=== PATIENT | female | born 1975 | race Two or more races ===

== ENCOUNTER 2024-01-02 11:01 | Emergency (ER) | payer MEDICAID, OTHER ==
[~2024-01-02] VITALS: Ht 165.1 cm; Wt 100.0 kg
[2024-01-02 12:06] LABS: Basophils # (auto) 0.1 10 ^3/uL (0-0.2); Basophils % (auto) 0.4 % (0.0-2.0); Eosinophils # (auto) 0.5 10 ^3/uL (0-0.8); Eosinophils % (auto) 3.8 % (0.0-7.0); Hematocrit 40.2 % (36.0-46.0); Hemoglobin 13.4 g/dL (12.2-16.2); Lymphocytes % (auto) 23.4 % (10.0-50.0); Mean Corpuscular Hemoglobin 29.5 pg (28.0-32.0); Mean Corpuscular Hgb Conc. 33.3 g/dL (32.0-36.0); Mean Corpuscular Volume 88.6 fL (80.0-100.0); Monocytes # (auto) 0.8 10 ^3/uL (0-1.3); Monocytes % (auto) 6.4 % (0.0-12.0); Neutrophils # (auto) 8.3 10 ^3/uL (1.6-8.6); Platelet Count (auto) 361 10^3/uL (140-450); Red Blood Cells 4.54 10^6/uL (4.0-5.20); Red Cell Distribution Width 14.4 % (11.8-14.3); White Blood Cell 12.7 10^3/uL (4.4-10.8)
[2024-01-02 12:08] LABS: Chloride 106 mmol/L (98-107); Potassium 3.1 mmol/L (3.5-5.1); Sodium 138 mmol/L (136-145)
[2024-01-02 12:09] LABS: Anion Gap 6 (5-15); Carbon Dioxide 26 mmol/L (20-31)
[2024-01-02 12:10] LABS: Calcium 9.5 mg/dL (8.7-10.4)
[2024-01-02 12:14] LABS: Glucose 160 mg/dL (74-106)
[2024-01-02 12:15] LABS: Blood Urea Nitrogen 6 mg/dL (9-23)
[2024-01-02 12:23] LABS: INR 1.08 (0.9-1.15); Partial Thromboplastin Time 32.1 SEC (24.5-34.5); Prothrombin Time 11.4 sec (9.3-11.8)
[2024-01-02] MEDS: POTASSIUM CHL 20 Meq TABLET PO ONE (13:03)
[2024-01-02 13:08] VITALS: BP 137/83; PULSE 60; RESP 18; TEMP 97.6; O2SAT 95
[2024-01-02] MEDS ORDERED: PROG100C23 PO (13:33)
== END 2024-01-02 13:44 | disposition home or self-care (01) ==
LOC: ER 11:12
DX: D25.9 Leiomyoma of uterus, unspecified (principal); I10 Essential (primary) hypertension; R42 Dizziness and giddiness; R51.9 Headache, unspecified; Z79.890 Hormone replacement therapy; Z88.7 Allergy status to serum and vaccine; Z90.49 Acquired absence of other specified parts of digestive tract; Z79.899 Other long term (current) drug therapy; Z79.01 Long term (current) use of anticoagulants
CPT/HCPCS: 36415; 76856; 80048; 85025; 85610; 85730; 86850; 86900; 86901

== ENCOUNTER 2024-09-19 10:41 | Inpatient (IN) | payer MEDICAID ==
[~2024-09-19] VITALS: Ht 165.1 cm; Wt 105.0 kg
[~2024-09-19 10:41] MED LIST: PROG100C23 PO
--- NOTE | 2024-09-19 11:21 | ED.PDOC ---
GI ASSESSMENT HPI Comments This is a 48 year old female presenting to the ED with chief complaint of abdominal pain. Patient reports that she has been experiencing RLQ abdominal pain for the past 6 days. Patient relays that she had her hysterectomy recently performed in August at [facility]. Patient denies any nausea, vomiting, diarrhea, dysuria, hematuria, vaginal bleeding, or melena. Chief Complaint: Abdominal Pain Time Seen by MD: 11:20 Primary Care Provider: JIMENEZ Reviewed Notes: Nurses Notes, Medications, Allergies Allergies: Coded Allergies: Tetanus Toxoids (Verified Allergy, Unknown, 01/02/24) Home Meds Active Scripts Progesterone Micronized (PROGESTERONE) 100 Mg Cap, 10 MG PO DAILY for 10 Days, #10 CAP Prov:ERASMO SPEAR MD 01/02/24 Information Source: Patient Mode of Arrival: Ambulatory Timing: Days Duration: Since onset Prehospital treatment: None Quality: Aching Vomitus: None Stool: Normal Severity: Moderate Recent: None Recent Hx of: None Pain Location: RLQ Modifying Factors: Nothing Associated sign and symptoms: Abdominal Pain Past Medical History PAST MEDICAL HISTORY: High Lipids, HTN Surgical History: Cholecystectomy, , Hysterectomy LABORER SAWMILL History: Denies all LABORER SAWMILL Hx Family History Family History: Reviewed,noncontributory to illness, Family hx of HTN Social History Smoker: Non-Smoker Alcohol: Occasionally Drugs: Denies Drug Use Lives In: Home Constitutional: denies: chills, diaphoresis, fatigue, fever, malaise, sweats, weakness, others EENTM: denies: blurred vision, double vision, ear bleeding, ear discharge, ear drainage, ear pain, ear ringing, eye pain, eye redness, hearing loss, mouth pain, mouth swelling, nasal discharge, nose bleeding, nose congestion, nose pain, photophobia, tearing, throat pain, throat swelling, voice changes, others Respiratory: denies: cough, hemoptysis, orthopnea, SOB at rest, shortness of breath, SOB with excertion, stridor, wheezing, others Cardiovascular: denies: chest pain, dizzy spells, diaphoresis, Dyspnea on exertion, edema, irregular heart beat, left arm pain, lightheadedness, palpitations, PND, syncope, others Gastrointestinal: reports: abdominal pain; denies: abdomen distended, blood streaked bowels, constipated, diarrhea, dysphagia, difficulty swallowing, hematemesis, melena, nausea, poor appetite, poor fluid intake, rectal bleeding, rectal pain, vomiting, others Genitourinary: denies: abnormal vagina bleeding, burning, dyspareunia, dysuria, flank pain, frequency, hematuria, incontinence, pain, , vagina discharge, urgency, others Neurological: denies: dizziness, fainting, headache, left sided numbness, left sided weakness, numbness, paresthesia, pre-existing deficit, right sided numbness, right sided weakness, seizure, speech problems, tingling, tremors, weakness, others Musculoskeletal: denies: back pain, gout, joint pain, joint swelling, muscle pain, muscle stiffness, neck pain, others Integumetry: denies: bruises, change in color, change in hair/nails, dryness, laceration, lesions, lumps, rash, wounds, others Allergic/Immunocompromised: denies: Difficulty Healing, Frequent Infections, Hives, Itching, others Hematologic/Lymphatic: denies: anemia, blood clots, easy bleeding, easy bruising, swollen glands, others Endocrine: denies: excessive hunger, excessive sweating, excessive thirst, excessive urination, flushing, intolerance to cold, intolerance to heat, unexplained weight gain, unexplained weight loss, others Psychiatric: denies: anxiety, bipolar disorder, depression, hopeless, panic disorder, schizophrenia, sleepless, suicidal, others All Other Systems: Reviewed and Negative Physical Exam General Appearance: Moderate Distress HEENT: Normal ENT Inspection, Pharynx Normal, TMs Normal Neck: Full Range of Motion, Non-Tender, Normal, Normal Inspection Respiratory: Chest Non-Tender, Lungs Clear, No Accessory Muscle Use, No Respiratory Distress, Normal Breath Sounds Cardiovascular: No Edema, No JVD, No Murmur, No Gallop, Normal Peripheral P ulses, Regular Rate/Rhythm Breast Exam: Deferred Gastrointestinal: No Organomegaly, No Pulsatile Mass, Normal Bowel Sounds, RLQ, Soft, Tenderness Genitalia: Deferred Pelvic: Deferred Rectal: Deferred Extremities: No calf tenderness, Normal capillary refill, Normal inspection, Normal range of motion, Non-tender, No pedal edema Musculoskeletal : Apperance: Normal Neurologic: Alert, fruit packer II-XII nml as Tested, Motor Weakness, Normal Affect, Normal Mood, No Sensory Deficits Cerebellar Function: Normal Reflexes: Normal Skin: Dry, Normal Color, Warm Lymphatic: No Adenopathy Was a procedure done? Was a procedure done?: No GI differential Dx Differential Diagnosis: Appendicitis, Gastritis/PUD, Gastroenteritis, Inflammatory BD, Ischemic Bowel, Pancreatitis X-Ray, Labs, Meds, VS Vital Signs Date Time Temp Pulse Resp B/P (MAP) Pulse Ox O2 Delivery O2 Flow Rate FiO2 09/19/24 10:48 98.6 110 18 126/96 (106) 96 98.6 Lab Test 09/19/24 11:33 09/19/24 11:13 Range/Units White Blood Count 12.2 H 4.4-10.8 10^3/uL Red Blood Count 4.61 4.0-5.20 10^6/uL Hemoglobin 12.5 12.2-16.2 g/dL Hematocrit 38.0 36.0-46.0 % Mean Corpuscular Volume 82.4 80.0-100.0 fL Mean Corpuscular Hemoglobin 27.2 L 28.0-32.0 pg Mean Corpuscular Hemoglobin Concent 33.0 32.0-36.0 g/dL Red Cell Distribution Width 16.6 H 11.8-14.3 % Platelet Count 370 140-450 10^3/uL Mean Platelet Volume 8.1 6.9-10.8 fL Neutrophils (%) (Auto) 58.8 37.0-80.0 % Lymphocytes (%) (Auto) 25.1 10.0-50.0 % Monocytes (%) (Auto) 8.4 0.0-12.0 % Eosinophils (%) (Auto) 6.4 0.0-7.0 % Basophils (%) (Auto) 1.3 0.0-2.0 % Neutrophils # (Auto) 7.2 1.6-8.6 10 ^3/uL Lymphocytes # (Auto) 3.1 0.4-5.4 10 ^3/uL Monocytes # (Auto) 1.0 0-1.3 10 ^3/uL Eosinophils # (Auto) 0.8 0-0.8 10 ^3/uL Basophils # (Auto) 0.2 0-0.2 10 ^3/uL Nucleated Red Blood Cells 0.0 % Sodium Level 138 136-145 mmol/L Potassium Level 3.7 3.5-5.1 mmol/L Chloride Level 102 98-107 mmol/L Carbon Dioxide Level 28 20-31 mmol/L Anion Gap 8 5-15 Blood Urea Nitrogen 8 L 9-23 mg/dL Creatinine 0.59 0.550-1.02 mg/dL Glomerular Filtration Rate Calc 110 >90 mL/min BUN/Creatinine Ratio 13.6 10.0-20.0 Serum Glucose 139 H 74-106 mg/dL Calcium Level 9.3 8.7-10.4 mg/dL Total Bilirubin 0.4 0.2-1.0 mg/dL Aspartate Amino Transferase (AST) 20 13-40 U/L Alanine Aminotransferase (ALT) 9 7-40 U/L Alkaline Phosphatase 80 46-116 U/L Total Protein 7.5 5.7-8.2 g/dL Albumin 4.5 3.2-4.8 g/dL Lipase 36 12-53 U/L Urine Color Light-yellow Yellow Urine Clarity Clear Clear Urine pH 7.0 5.0-9.0 Urine Specific [place] 1.019 1.001-1.035 Urine Protein Negative Negative Urine Ketones Negative Negative Urine Blood Negative Negative /uL Urine Nitrite Negative Negative Urine Bilirubin Negative Negative Urine Urobilinogen Normal Negative mg/dL Urine Leukocyte Esterase Negative Negative /uL Urine RBC 2 0 - 4 /hpf Urine Microscopic WBC < 1 0-5 /HPF Urine Squamous Epithelial Cells Few <5 /hpf Urine Bacteria Few H None Seen /hpf Urine Glucose Normal Normal mg/dL CT Abd/Pel indicates: Limited evaluation without intravenous contrast. Post surgical changes in the anterior pelvic wall with a possible postoperative fluid collection. There could be bowel running through this collection. Recommend further evaluation with CT of the pelvis with contrast. Could also be further evaluated with ultrasound. Small amount of pelvic ascites. The urine test is negative for any infection The CBC shows an elevated white blood cell count of 12.2 The patient is having persistent abdominal pain The patient is being admitted with a diagnosis of intractable abdominal pain The patient is given morphine and Zofran for the pain Images Reviewed?: Images reviewed and evaluated by me Time of 1ST Reevaluation: 13:12 Reevaluation 1ST: Unchanged Patient Education/Counseling: Diagnosis, Treatment Family Education/Counseling: No Family Present Additional Information Reviewed patient's previous visit(s): 01/02/24 for abnormal uterine bleeding The following tests were ordered, and results were reviewed by me: CBC, CMP, UA, Lipase, CT Abd/Pel Additional information was gathered from interviewing the following independent historian: None I reviewed and agreed with the following test results read by other provider: CT Abd/Pel I discussed treatments and results with medical personnel and: Patient Comprehensive systems review obtained and negative except for what is stated in the HPI. SEPSIS Sepsis Screen Date sepsis recognized/suspect: Sep 19, 2024 Time Sepsis recognized/suspect: 1048 Recent Procedure: No On Antibiotic Therapy: No Respiratory Rate >20: No Heart Rate >90: Yes (110) Temp<36 C (96.8 F) or >38.3 C: No SBP <90 or MAP <65 mmHG: No New Acute Mental Status Change: No Is the patient on CPAP, BIPAP,: No Physician Orders Ct Ab Pel Wo Con-No Oral Or Iv (09/19/24 11:13) Heplock Iv (09/19/24 11:13) Vital Signs Date Time Temp Pulse Resp B/P (MAP) Pulse Ox O2 Delivery O2 Flow Rate FiO2 09/19/24 10:48 98.6 110 18 126/96 (106) 96 98.6 Laboratory Tests Test 09/19/24 11:33 White Blood Count 12.2 10^3/uL (4.4-10.8) H Departure 1 Departure Time of Disposition: 13:12 Impression: Primary Impression: Intractable abdominal pain Additional Impression: Abdominal pain of unknown etiology Disposition: ADMITTED INPATIENT Admit to: Med Surg Condition: Fair Critical Care Note Critical Care Time?: No Stability Stability form required: Yes Unstable for transfer: ED Physician Assesment (Clinical assesment) Heart Score Heart Score: Heart Score Response (Comments) Value History N/A 0 EKG N/A 0 Age N/A 0 Risk Factors N/A 0 Troponin N/A 0 Total 0 I personally scribed for ERASMO SPEAR MD ([email or web address]) on 09/19/24 at 11:21. Electronically submitted by Catracho Warren ([email or web address]). I personally scribed for ERASMO SPEAR MD ([email or web address]) on 09/19/24 at 11:58. Electronically submitted by Catracho Warren ([email or web address]). ERASMO SPEAR MD Sep 19, 2024 11:21
[2024-09-19 11:48] LABS: Hematocrit 38.0 % (36.0-46.0); Hemoglobin 12.5 g/dL (12.2-16.2); Mean Corpuscular Hemoglobin 27.2 pg (28.0-32.0); Mean Corpuscular Volume 82.4 fL (80.0-100.0); Nucleated Red Blood Cells % 0.0 %
--- NOTE | 2024-09-19 11:49 | DVH ---
Exam: CT CT AB PEL WO CON-NO ORAL OR IV History: pain Comparison Study: None Technique: Multidetector spiral CT of the abdomen and pelvis was performed from lung bases to pubic symphysis. Imaging was performed without IV contrast. Axial, coronal and sagittal multiplanar reform ats were obtained from the axial data set by the technologist. Radiation dose : Abdomen/Pelvis: CTDIvol 26 mGy, DLP 1515 mGy*cm. Findings: Evaluation of solid organs is limited due to lack of intravenous contrast use. Lung Bases: No acute or significant lung base finding. Normal heart size. No pleural or pericardial effusion. Liver: The liver is normal in size. No focal lesions. Gallbladder and biliary Tree: Gallbladder is surgically absent. Spleen: Unremarkable Pancreas: The pancreas is grossly normal in appearance. Adrenal Glands: Unremarkable Kidneys: Kidneys are grossly normal without calculi or hydronephrosis. Bladder: Grossly unremarkable for degree of distention. Bowel: The stomach is grossly normal in appearance. Small bowel and colon are normal in caliber and d istribution. Normal appendix is visualized in the right lower quadrant without findings of appendicit is. Ascites: Small amount of ascites in the pelvis. Lymphadenopathy: No mesenteric, retroperitoneal or periportal lymphadenopathy. Abdominal wall and Mesentery: Postsurgical changes in the anterior pelvic wall. Possible fluid collec tion in the anterior abdominal wall measuring up to 66 mm. Vasculature: The visualized abdominal aorta is normal in size and caliber. Evaluation of abdominal a nd pelvic vessels is limited due to lack of intravenous contrast. Pelvic Organs: The uterus is surgically absent. Musculoskeletal: No aggressive focal bony lesions, acute fractures or dislocation. IMPRESSION: 1. Limited evaluation without intravenous contrast. Post surgical changes in the anterior pelvic wal l with a possible postoperative fluid collection. There could be bowel running through this collecti on. Recommend further evaluation with CT of the pelvis with contrast. Could also be further evaluated with ultrasound. Small amount of pelvic ascites. Radiation optimization: All CT scans at this facility use at least one of these dose optimization rosanna hniques: Automated exposure control mA and/or kV adjustment per patient size (includes targeted exams where dose is matched to clinical indication) or iterative reconstruction. HS:Y
[2024-09-19 11:51] LABS: Urine Protein, UAD Negative (Negative)
[2024-09-19 12:07] LABS: Alanine Aminotransferase 9 U/L (7-40); Albumin 4.5 g/dL (3.2-4.8); Alkaline Phosphatase 80 U/L (46-116); Anion Gap 8 (5-15); BUN/Creatinine Ratio 13.6 (10.0-20.0); Bilirubin, Total 0.4 mg/dL (0.2-1.0); Blood Urea Nitrogen 8 mg/dL (9-23); Calcium 9.3 mg/dL (8.7-10.4); Carbon Dioxide 28 mmol/L (20-31); Chloride 102 mmol/L (98-107); Glucose 139 mg/dL (74-106); Lipase 36 U/L (12-53); Potassium 3.7 mmol/L (3.5-5.1); Sodium 138 mmol/L (136-145); Total Protein 7.5 g/dL (5.7-8.2)
[2024-09-19] MEDS ORDERED: ONDANSETRON HCL 4 MG/2 ML VIAL IV PRN (16:45)
[2024-09-19] MEDS ORDERED: DOCUSATE SOD 100 MG CAP PO PRN (16:45)
[2024-09-19] MEDS ORDERED: MORPHINE SULFATE INJ 2 MG/ml SYRG IV PRN (16:45)
[2024-09-19] MEDS: SODIUM CHLORIDE 0.9% 1,000 ML IV SCH (16:45)
[2024-09-19] MEDS: PANTOPRAZOLE 40 MG/10 ML VIAL INJ IV ONE (17:22)
[2024-09-19] MEDS: cefTRIAXone 1GM/50ML D5W 50 ML IV ONE (17:23)
[2024-09-19] MEDS ORDERED: NITROGLYCERIN 0.4 MG SL TAB SL PRN (18:30)
--- NOTE | 2024-09-19 18:32 | DVHHP2 ---
History of Present Illness Reason for Visit: Intractable abdominal pain History of Present Illness The patient is a 48-year-old female with past medical history of hypertension and hyperlipidemia who presented to [facility] ED with complaint of abdominal pain. Patient reports she has been experiencing right lower quadrant abdominal pain for the past 6 days, rating pain 7/10 numeric scale, getting worse today that prompted this visit. Patient was seen and evaluated in the ED, laboratory data shows WBC 12.2, platelets 370, sodium 138, potassium 3.7, BUN 8, creatinine 0.59, glucose 139, sodium 36, blood pressure 126/96, heart rate 88, temperature 98.1 F, O2 saturation 97% on room air. Abdomen/pelvis CT revealing postsurgical changes in the anterior pelvic wall with a possible postoperative fluid collection, this could be bowel running through disease collection. Patient was started on IV antibiotic regimen Rocephin, please see medication orders section in the computer. On my assessment, patient denied chest pain, no headache, no dizziness, no diaphoresis, no shortness of breath, no nausea, no vomiting, no fever, no chills. Patient was admitted for further evaluation and medical management. Past Medical History High Lipids, HTN Past Surgical History Cholecystectomy, , Hysterectomy Family History Reviewed, noncontributory to the management of this case. Past Social History The patient lives at home, denies smoking, drinks alcohol occasionally, denies illicit drugs abuse. Review of Systems Constitutional: No: Fever, Chills, Sweats, Weakness, Malaise, Other Eyes: No: Pain, Vision change, Conjunctivae inflammation, Eyelid inflammation, Other, Redness ENT: No: Ear pain, Ear discharge, Nose pain, Nose discharge, Nose congestion, Mouth pain, Mouth swelling, Throat pain, Throat swelling, Other Respiratory: No: Cough, Dry, Shortness of breath, SOB with excertion, Wheezing, Hemoptysis, Pleuritic Pain, Sputum, Wheezing, Other Cardiovascular: No: Chest Pain, Palpitations, Orthopnea, Paroxysmal Noc. Dyspnea, Edema, Lt Headedness, Other Gastrointestinal: Abdominal Pain; No: Nausea, Vomiting, Diarrhea, Constipation, Melena, Hematochezia, Other Genitourinary: No Dysuria, No Frequency, No Incontinence, No Hematuria, No Retention, No Other Musculoskeletal: No: other, neck pain, shoulder pain, arm pain, back pain, hand pain, leg pain, foot pain Skin: No: Rash, Lesions, Jaundice, Bruising, Other Neurological: No: Weakness, Numbness, Incoordination, Change in speech, Confusion, Seizures, Other Allergies: Coded Allergies: Tetanus Toxoids (Verified Allergy, Unknown, 01/02/24) Medications Current Medications Medications Dose Ordered Sig/Ghada Route Start Time Stop Time Status Last Admin Dose Admin Pantoprazole Sodium 40 mg DAILY IV 09/20/24 10:00 Ceftriaxone Sodium 50 ml @ 100 mls/hr DAILY@09 IV 09/20/24 09:00 Sodium Chloride 1,000 ml @ 60 mls/hr [id number] IV 09/19/24 16:45 Acetaminophen/ Hydrocodone Bitart 1 tab Q4HP PRN PO 09/19/24 16:45 Ondansetron HCl 4 mg Q4HP PRN IV 09/19/24 16:45 Docusate Sodium 100 mg BIDPRN PRN PO 09/19/24 16:45 Acetaminophen 650 mg Q6HP PRN PO 09/19/24 16:45 Morphine Sulfate 2 mg Q4HPRN PRN IV 09/19/24 16:45 Exam Vital Signs Vital Signs Date Time Temp Pulse Resp B/P (MAP) Pulse Ox O2 Delivery O2 Flow Rate FiO2 09/19/24 17:25 98.7 85 16 136/96 (109) 100 98.7 09/19/24 17:25 Room Air General Appearance: Alert, Oriented X3, Cooperative, No acute distress HEENT: Atraumatic, PERRLA, EOMI, Mucous membr. moist/pink Respiratory: Normal air movement Cardiovascular: Regular rate, Normal S1, Normal S2, No murmurs Abdominal: Normal bowel sounds, Soft, No hepatospenomegaly, No masses, Other (Reports tenderness) Extremities: No clubbing, No cyanosis, No edema, Normal pulses, No tenderness/swelling Skin: No rashes, No breakdown, No significant lesion Neuro: Normal gait, Normal speech, Strength at 5/5 X4 ext, Normal tone, Sensation intact, Cranial nerves 3-12 NL, Reflexes 2+ Psych/Mental Status: Mental status NL, Mood NL Labs/Xrays Labs Test 09/19/24 11:33 09/19/24 11:13 Range/Units White Blood Count 12.2 H 4.4-10.8 10^3/uL Red Blood Count 4.61 4.0-5.20 10^6/uL Hemoglobin 12.5 12.2-16.2 g/dL Hematocrit 38.0 36.0-46.0 % Mean Corpuscular Volume 82.4 80.0-100.0 fL Mean Corpuscular Hemoglobin 27.2 L 28.0-32.0 pg Mean Corpuscular Hemoglobin Concent 33.0 32.0-36.0 g/dL Red Cell Distribution Width 16.6 H 11.8-14.3 % Platelet Count 370 140-450 10^3/uL Mean Platelet Volume 8.1 6.9-10.8 fL Neutrophils (%) (Auto) 58.8 37.0-80.0 % Lymphocytes (%) (Auto) 25.1 10.0-50.0 % Monocytes (%) (Auto) 8.4 0.0-12.0 % Eosinophils (%) (Auto) 6.4 0.0-7.0 % Basophils (%) (Auto) 1.3 0.0-2.0 % Neutrophils # (Auto) 7.2 1.6-8.6 10 ^3/uL Lymphocytes # (Auto) 3.1 0.4-5.4 10 ^3/uL Monocytes # (Auto) 1.0 0-1.3 10 ^3/uL Eosinophils # (Auto) 0.8 0-0.8 10 ^3/uL Basophils # (Auto) 0.2 0-0.2 10 ^3/uL Nucleated Red Blood Cells 0.0 % Sodium Level 138 136-145 mmol/L Potassium Level 3.7 3.5-5.1 mmol/L Chloride Level 102 98-107 mmol/L Carbon Dioxide Level 28 20-31 mmol/L Anion Gap 8 5-15 Blood Urea Nitrogen 8 L 9-23 mg/dL Creatinine 0.59 0.550-1.02 mg/dL Glomerular Filtration Rate Calc 110 >90 mL/min BUN/Creatinine Ratio 13.6 10.0-20.0 Serum Glucose 139 H 74-106 mg/dL Calcium Level 9.3 8.7-10.4 mg/dL Total Bilirubin 0.4 0.2-1.0 mg/dL Aspartate Amino Transferase (AST) 20 13-40 U/L Alanine Aminotransferase (ALT) 9 7-40 U/L Alkaline Phosphatase 80 46-116 U/L Total Protein 7.5 5.7-8.2 g/dL Albumin 4.5 3.2-4.8 g/dL Lipase 36 12-53 U/L Urine Color Light-yellow Yellow Urine Clarity Clear Clear Urine pH 7.0 5.0-9.0 Urine Specific [place] 1.019 1.001-1.035 Urine Protein Negative Negative Urine Ketones Negative Negative Urine Blood Negative Negative /uL Urine Nitrite Negative Negative Urine Bilirubin Negative Negative Urine Urobilinogen Normal Negative mg/dL Urine Leukocyte Esterase Negative Negative /uL Urine RBC 2 0 - 4 /hpf Urine Microscopic WBC < 1 0-5 /HPF Urine Squamous Epithelial Cells Few <5 /hpf Urine Bacteria Few H None Seen /hpf Urine Glucose Normal Normal mg/dL PATIENT: THIAGO CROWLEY: [id number] UNIT: [id number] : 1975 LOC: ER ROOM / BED: / AGE / SEX: 48 / F ADM STATUS: REG ER SERVICE 1113 ORDERING PHYSICIAN: ERASMO SPEAR MD PROCEDURE(s): ABPL - CT AB PEL WO CON-NO ORAL OR IV REASON: pain ORDER NUMBER(s): [id number], ACCESSION NUMBER(s): [id number] Exam: CT CT AB PEL WO CON-NO ORAL OR IV History: pain Comparison Study: None Technique: Multidetector spiral CT of the abdomen and pelvis was performed from lung bases to pubic symphysis. Imaging was performed without IV contrast. Axial, coronal and sagittal multiplanar reformats were obtained from the axial data set by the technologist. Radiation dose : Abdomen/Pelvis: CTDIvol 26 mGy, DLP 1515 mGy*cm. Findings: Evaluation of solid organs is limited due to lack of intravenous contrast use. Lung Bases: No acute or significant lung base finding. Normal heart size. No pleural or pericardial effusion. Liver: The liver is normal in size. No focal lesions. Gallbladder and biliary Tree: Gallbladder is surgically absent. Spleen: Unremarkable Pancreas: The pancreas is grossly normal in appearance. Adrenal Glands: Unremarkable Kidneys: Kidneys are grossly normal without calculi or hydronephrosis. Bladder: Grossly unremarkable for degree of distention. Bowel: The stomach is grossly normal in appearance. Small bowel and colon are normal in caliber and distribution. Normal appendix is visualized in the right lower quadrant without findings of appendicitis. Ascites: Small amount of ascites in the pelvis. Lymphadenopathy: No mesenteric, retroperitoneal or periportal lymphadenopathy. Abdominal wall and Mesentery: Postsurgical changes in the anterior pelvic wall. Possible fluid collection in the anterior abdominal wall measuring up to 66 mm. Vasculature: The visualized abdominal aorta is normal in size and caliber. Evaluation of abdominal and pelvic vessels is limited due to lack of intravenous contrast. Pelvic Organs: The uterus is surgically absent. Musculoskeletal: No aggressive focal bony lesions, acute fractures or dislocation. IMPRESSION: 1. Limited evaluation without intravenous contrast. Post surgical changes in the anterior pelvic wall with a possible postoperative fluid collection. There could be bowel running through this collection. Recommend further evaluation with CT of the pelvis with contrast. Could also be further evaluated with ultrasound. Small amount of pelvic ascites. Assessment/Plan Assessment/Plan Intractable abdominal pain Leukocytosis, unspecified Abdominal pain of unknown etiology Plan 1. Admit to med surge unit 2. Breathing treatment 3. Pain control management 4. Management of fluids and electrolytes 5. Consultation for hospitalist 6. Diagnostic tests abdomen/pelvis CT 7. DVT prophylaxis-on SCDs 8. Repeat labs CBC, CMP in a.m. 9. Continue with current medical management 10. Treatment plan discussed with patient and RN. Patient verbalized understand ing. Plan discussed with: Patient, Other (RN) My Orders Orders - SHONDA KNOX DNP Procedure Category Date Status Time Pantoprazole PHA 09/20/24 In Process (Protonix) 10:00 Ceftriaxone 1gm/50ml PHA 09/20/24 In Process D5w (Rocephin) 09:00 Allergies BARB 09/19/24 In Process 16:31 Code Status CODE 09/19/24 Transmitted 16:31 Sodium Chloride 0.9% PHA 09/19/24 In Process 16:45 Oxygen Per Hour RT 09/19/24 Transmitted 16:31 Hydrocodone-Acet PHA 09/19/24 In Process 5/325mg Tab ([place] 16:45 Ondansetron Hcl PHA 09/19/24 In Process (Zofran) 16:45 Docusate Sodium PHA 09/19/24 In Process Capsule (Colace 16:45 Complete Blood Count LAB 09/20/24 Verified 04:00 Comprehensive LAB 09/20/24 Verified Metabolic Panel 04:00 Condition: Serious BARB 09/19/24 In Process 16:31 Acetaminophen Tablet PHA 09/19/24 In Process (Tylenol Tablet) 16:45 Clear Liq Diet DIET 09/19/24 Transmitted Dinner Bedrest With Bathroom BARB 09/19/24 In Process Privileg 16:31 Morphine Sulfate PHA 09/19/24 In Process Injection 16:45 Sequential BARB 09/19/24 In Process Compression Device Problem List: (1) Intractable abdominal pain (2) Leukocytosis, unspecified (3) Abdominal pain of unknown etiology Date of Service: Sep 19, 2024 Billing Provider: SHONDA KNOX DNP Common Visit Codes: 25856-VEYORLY INP/OBS CARE (HIGH) SHONDA KNOX DNP Sep 19, 2024 18:31
[2024-09-19 19:32] VITALS: RESP 18
[2024-09-19] MEDS ORDERED: LISI-275 PO (20:02)
[2024-09-19 21:00] VITALS: BP 113/90; PULSE 83; RESP 16; TEMP 98.2; O2SAT 95
[2024-09-19 21:11] VITALS: BP 113/90; PULSE 83; RESP 19; TEMP 98.2; O2SAT 95
[2024-09-19] MEDS: MORPHINE SULFATE INJ 2 MG/ml SYRG IV PRN (21:47)
[2024-09-20 04:19] LABS: Hematocrit 36.1 % (36.0-46.0); Hemoglobin 12.0 g/dL (12.2-16.2); Mean Corpuscular Hemoglobin 27.3 pg (28.0-32.0); Mean Corpuscular Volume 82.1 fL (80.0-100.0); Nucleated Red Blood Cells % 0.0 %
[2024-09-20 04:30] LABS: Alanine Aminotransferase 11 U/L (7-40); Albumin 4.3 g/dL (3.2-4.8); Alkaline Phosphatase 93 U/L (46-116); Anion Gap 9 (5-15); BUN/Creatinine Ratio 17.0 (10.0-20.0); Calcium 9.3 mg/dL (8.7-10.4); Carbon Dioxide 28 mmol/L (20-31); Chloride 101 mmol/L (98-107); Potassium 3.6 mmol/L (3.5-5.1); Sodium 138 mmol/L (136-145); Total Protein 7.1 g/dL (5.7-8.2)
[2024-09-20 04:31] LABS: Bilirubin, Total 0.7 mg/dL (0.2-1.0)
[2024-09-20 04:34] LABS: Blood Urea Nitrogen 8 mg/dL (9-23); Glucose 113 mg/dL (74-106)
[2024-09-20] MEDS: ACETAMINOPHEN 325 MG TAB PO PRN (04:56)
[2024-09-20 05:15] VITALS: BP 116/78; PULSE 92; RESP 16; TEMP 98.2; O2SAT 96
[2024-09-20 08:30] VITALS: BP 97/61; PULSE 77; RESP 16; TEMP 98.4; O2SAT 95
[2024-09-20] MEDS: cefTRIAXone 1GM/50ML D5W 50 ML IV SCH (09:14)
[2024-09-20] MEDS: PANTOPRAZOLE 40 MG/10 ML VIAL INJ IV SCH (09:14)
[2024-09-20 12:00] VITALS: BP 104/68; PULSE 74; RESP 16; TEMP 98.8; O2SAT 97
[2024-09-20] MEDS ORDERED: IOHEXOL 300 MG/ML 100ML BOTTLE IJ ONE (12:03)
--- NOTE | 2024-09-20 13:08 | DVHPN2 ---
Subjective The patient is seen and examined at bedside. No complaint today except abdominal pain. Reviewed: Care Plan, H&P, Labs, Medications, Previous Orders, Radiology Changes from previous H/P or p: No Changes Eyes: No Pain, No Vision change, No Conjunctivae inflammation, No Eyelid inflammation, No Other, No Redness ENT: No Ear pain, No Ear discharge, No Nose pain, No Nose discharge, No Nose congestion, No Mouth pain, No Mouth swelling, No Throat pain, No Throat swelling, No Other Cardiovascular: No Chest Pain, No Palpitations, No Orthopnea, No Paroxysmal Noc. Dyspnea, No Edema, No Lt Headedness, No Other Respiratory: No Cough, No Dry, No Shortness of breath, No SOB with excertion, No Wheezing, No Hemoptysis, No Pleuritic Pain, No Sputum, No Other Gastrointestinal: No Nausea, No Vomiting; Abdominal Pain; No Diarrhea, No Constipation, No Melena, No Hematochezia, No Other Genitourinary: No Dysuria, No Frequency, No Incontinence, No Hematuria, No Retention, No Other Musculoskeletal: No other, No neck pain, No shoulder pain, No arm pain, No back pain, No hand pain, No leg pain, No foot pain Skin: No Rash, No Lesions, No Jaundice, No Bruising, No Other Objective Vitals Vital Signs Date Time Temp Pulse Resp B/P (MAP) Pulse Ox O2 Delivery O2 Flow Rate FiO2 09/20/24 12:00 98.8 74 16 104/68 (80) 97 98.8 09/19/24 21:14 Room Air* 0 21 Intake/Output Intake and Output 09/20/24 07:00 Intake Total 250 ml Output Total 2 ml Balance 248 ml Intake Oral 250 ml Output Urine Total 2 ml General Appearance: Alert, Oriented X3, Cooperative, No acute distress HEENT: Atraumatic, PERRLA, EOMI, Mucous membr. moist/pink Neck: Supple Lungs: Clear to auscultation, Normal air movement Cardiovascular: Regular rate, Normal S1, Normal S2, No murmurs, Gallops, Rubs Abdomen: Normal bowel sounds, Soft, Other (Tetanus her on all four quadrant especially right and left lower abdominal quadrant) Neuro: Cranial nerves 3-12 NL Psych/Mental Status: Mental status NL Medications Current Medications Medications Dose Ordered Sig/Ghada Route Start Time Stop Time Status Last Admin Dose Admin Pantoprazole Sodium 40 mg DAILY IV 09/20/24 10:00 09/20/24 09:14 40 MG Ceftriaxone Sodium 50 ml @ 100 mls/hr DAILY@09 IV 09/20/24 09:00 09/20/24 09:14 100 MLS/HR Sodium Chloride 1,000 ml @ 60 mls/hr [id number] IV 09/19/24 16:45 09/20/24 09:15 60 MLS/HR Acetaminophen/ Hydrocodone Bitart 1 tab Q4HP PRN PO 09/19/24 16:45 Ondansetron HCl 4 mg Q4HP PRN IV 09/19/24 16:45 Docusate Sodium 100 mg BIDPRN PRN PO 09/19/24 16:45 Acetaminophen 650 mg Q6HP PRN PO 09/19/24 16:45 09/20/24 04:56 650 MG Morphine Sulfate 2 mg Q4HPRN PRN IV 09/19/24 16:45 Nitroglycerin 0.4 mg Q5MINP PRN SL 09/19/24 18:30 Morphine Sulfate 2 mg Q30M PRN IV 09/19/24 18:30 09/19/24 21:47 2 MG Laboratory Results Laboratory Tests 09/20/24 03:27 Chemistry Test 09/20/24 03:27 Albumin 4.3 g/dL (3.2-4.8) Calcium Level 9.3 mg/dL (8.7-10.4) Total Protein 7.1 g/dL (5.7-8.2) LFT Test 09/20/24 03:27 Alanine Aminotransferase (ALT) 11 U/L (7-40) Alkaline Phosphatase 93 U/L (46-116) Aspartate Amino Transferase (AST) 27 U/L (13-40) Total Bilirubin 0.7 mg/dL (0.2-1.0) Urinalysis Test 09/19/24 11:13 Urine Color Light-yellow (Yellow) Urine Clarity Clear (Clear) Urine pH 7.0 (5.0-9.0) Urine Specific [place] 1.019 (1.001-1.035) Urine Protein Negative (Negative) Urine Ketones Negative (Negative) Urine Blood Negative /uL (Negative) Urine Nitrite Negative (Negative) Urine Bilirubin Negative (Negative) Urine Urobilinogen Normal mg/dL (Negative) Urine Leukocyte Esterase Negative /uL (Negative) Urine RBC 2 /hpf (0 - 4) Urine Microscopic WBC < 1 /HPF (0-5) Urine Squamous Epithelial Cells Few /hpf (<5) Urine Bacteria Few /hpf (None Seen) H Urine Glucose Normal mg/dL (Normal) Labs and/or images reviewed: Labs reviewed by me, Image(s) reviewed by me Assessment/Plan Assessment/Plan Intractable abdominal pain Leukocytosis, unspecified Abdominal pain History of recent hysterectomy in August in [place] Rapid weight loss after surgery Continuing current management. I am going to order a CT scan of pelvis with contrast to rule out abscess Continuing with IV antibiotic. Continuing with pain medication This medical document was created using an electronic medical record system with [employer] direct computerized dictation system. Although this document has been carefully reviewed, there may still be some phonetic and typographical errors. These areas are purely typographical due to imperfections of the software programs, and do not reflect any compromise in the patient's medical care. Plan discussed with: Patient My Orders Orders - DARNELL SEPULVEDA MD Procedure Category Date Status Time Pelvis With Contrast CT 09/20/24 Taken Only 11:46 Date of Service: Sep 20, 2024 Billing Provider: DARNELL SEPULVEDA MD Common Visit Codes: 25170-[id number] INP/OBS CARE(HIGH) DARNELL SEPULVEDA MD Sep 20, 2024 13:08
[2024-09-20] MEDS: HYDROcodone-ACET 5/325MG TAB PO PRN (13:12)
--- NOTE | 2024-09-20 13:15 | DVH ---
EXAM: CT PELVIS WITH CONTRAST ONLY INDICATION: ABDOMINAL PAIN EXAM DATE: 09/20/2024 11:57 AM COMPARISON: None TECHNIQUE: Multiple axial CT images of the pelvis were obtained using bone algorithm. Axial and coron al reformatting was done. Bone and soft tissue windows were reviewed. Radiation Dose Information: CT Dose: CTDI volume is 23.57 mGy. Dose-length product is 978.97 mGy*cm Findings: Lack of intravenous contrast limits evaluation of solid organs and vasculature. No evidence of an acute fracture, dislocation, blastic, lytic, or osseous destructive lesions. Lower anterior abdominal wall subcutaneous inflammatory changes with small anterior peritoneal fluid collections in the pelvis which appear the adjacent to but separate from the small bowel. The urinary bladder is underdistended but otherwise unremarkable. The distal ureters, are within norm al limits. Uterine and bilateral adnexal atrophy versus hysterectomy. No dilatation of the visualized portion of the bowel. No intraluminal free air or free fluid. Impression: 1. No acute osseous abnormalities. 2. Postsurgical changes of the lower anterior abdominal wall with small anterior peritoneal fluid col lections. If symptoms persist or worsen, recommend follow-up CT or MRI for further evaluation.
[2024-09-20 17:26] VITALS: BP 144/78; PULSE 95; RESP 16; TEMP 97.8; O2SAT 81
[2024-09-20 20:00] VITALS: PULSE 78; RESP 18; O2SAT 95
[2024-09-20 21:00] VITALS: BP 119/80; PULSE 78; RESP 18; TEMP 97.6; O2SAT 95
[2024-09-21 05:00] VITALS: BP 127/81; PULSE 74; RESP 18; TEMP 98; O2SAT 98
[2024-09-21 09:00] VITALS: BP 118/66; PULSE 76; RESP 16; TEMP 97.5; O2SAT 98
--- NOTE | 2024-09-21 12:05 | DVHPN2 ---
Subjective The patient is seen and examined at bedside. No complaint today except abdominal pain. Reviewed: Care Plan, H&P, Labs, Medications, Previous Orders, Radiology Eyes: No Pain, No Vision change, No Conjunctivae inflammation, No Eyelid inflammation, No Other, No Redness ENT: No Ear pain, No Ear discharge, No Nose pain, No Nose discharge, No Nose congestion, No Mouth pain, No Mouth swelling, No Throat pain, No Throat swelling, No Other Cardiovascular: No Chest Pain, No Palpitations, No Orthopnea, No Paroxysmal Noc. Dyspnea, No Edema, No Lt Headedness, No Other Respiratory: No Cough, No Dry, No Shortness of breath, No SOB with excertion, No Wheezing, No Hemoptysis, No Pleuritic Pain, No Sputum, No Other Gastrointestinal: No Nausea, No Vomiting; Abdominal Pain; No Diarrhea, No Constipation, No Melena, No Hematochezia, No Other Genitourinary: No Dysuria, No Frequency, No Incontinence, No Hematuria, No Retention, No Other Musculoskeletal: No other, No neck pain, No shoulder pain, No arm pain, No back pain, No hand pain, No leg pain, No foot pain Skin: No Rash, No Lesions, No Jaundice, No Bruising, No Other Objective Vitals Vital Signs Date Time Temp Pulse Resp B/P (MAP) Pulse Ox O2 Delivery O2 Flow Rate FiO2 09/21/24 09:00 97.5 76 16 118/66 (83) 98 97.5 09/21/24 07:30 Room Air* 0 21 Intake/Output Intake and Output 09/21/24 07:00 Intake Total 1410 ml Balance 1410 ml Intake Oral 460 ml IV Total 950 ml # Voids 1 General Appearance: Alert, Oriented X3, Cooperative, No acute distress HEENT: Atraumatic, PERRLA, EOMI, Mucous membr. moist/pink Neck: Supple Lungs: Clear to auscultation, Normal air movement Cardiovascular: Regular rate, Normal S1, Normal S2, No murmurs, Gallops, Rubs Abdomen: Normal bowel sounds, Soft, Other (Tetanus her on all four quadrant especially right and left lower abdominal quadrant) Neuro: Cranial nerves 3-12 NL Psych/Mental Status: Mental status NL Medications Current Medications Medications Dose Ordered Sig/Ghada Route Start Time Stop Time Status Last Admin Dose Admin Pantoprazole Sodium 40 mg DAILY IV 09/20/24 10:00 09/21/24 09:14 40 MG Ceftriaxone Sodium 50 ml @ 100 mls/hr DAILY@09 IV 09/20/24 09:00 09/21/24 09:14 100 MLS/HR Sodium Chloride 1,000 ml @ 60 mls/hr [id number] IV 09/19/24 16:45 09/21/24 05:01 60 MLS/HR Acetaminophen/ Hydrocodone Bitart 1 tab Q4HP PRN PO 09/19/24 16:45 09/20/24 22:34 1 TAB Ondansetron HCl 4 mg Q4HP PRN IV 09/19/24 16:45 Docusate Sodium 100 mg BIDPRN PRN PO 09/19/24 16:45 Acetaminophen 650 mg Q6HP PRN PO 09/19/24 16:45 09/21/24 11:45 650 MG Morphine Sulfate 2 mg Q4HPRN PRN IV 09/19/24 16:45 Nitroglycerin 0.4 mg Q5MINP PRN SL 09/19/24 18:30 Morphine Sulfate 2 mg Q30M PRN IV 09/19/24 18:30 09/19/24 21:47 2 MG Laboratory Results Laboratory Tests 09/20/24 03:27 Urinalysis Test 09/19/24 11:13 Urine Color Light-yellow (Yellow) Urine Clarity Clear (Clear) Urine pH 7.0 (5.0-9.0) Urine Specific [place] 1.019 (1.001-1.035) Urine Protein Negative (Negative) Urine Ketones Negative (Negative) Urine Blood Negative /uL (Negative) Urine Nitrite Negative (Negative) Urine Bilirubin Negative (Negative) Urine Urobilinogen Normal mg/dL (Negative) Urine Leukocyte Esterase Negative /uL (Negative) Urine RBC 2 /hpf (0 - 4) Urine Microscopic WBC < 1 /HPF (0-5) Urine Squamous Epithelial Cells Few /hpf (<5) Urine Bacteria Few /hpf (None Seen) H Urine Glucose Normal mg/dL (Normal) Assessment/Plan Assessment/Plan Intractable abdominal pain Leukocytosis, unspecified Abdominal pain History of recent hysterectomy in August in [place] Rapid weight loss after surgery Continuing current management. I am going to order a CT scan of pelvis with contrast to rule out abscess Continuing with IV antibiotic. Continuing with pain medication This medical document was created using an electronic medical record system with [employer] direct computerized dictation system. Although this document has been carefully reviewed, there may still be some phonetic and typographical errors. These areas are purely typographical due to imperfections of the software programs, and do not reflect any compromise in the patient's medical care. DARNELL SEPULVEDA MD Sep 21, 2024 12:04
--- NOTE | 2024-09-21 12:35 | DVHDS2 ---
Discharge Summary Date of Admission Sep 19, 2024 at 18:30 Date of Discharge: Sep 21, 2024 Admitting Diagnosis Intractable abdominal pain Leukocytosis, unspecified Abdominal pain History of recent hysterectomy in August in [place] Labs/Diagnostic Data: Laboratory Results Test 09/20/24 03:27 09/19/24 11:33 09/19/24 11:13 White Blood Count 11.7 10^3/uL (4.4-10.8) Red Blood Count 4.40 10^6/uL (4.0-5.20) Hemoglobin 12.0 g/dL (12.2-16.2) Hematocrit 36.1 % (36.0-46.0) Mean Corpuscular Volume 82.1 fL (80.0-100.0) Mean Corpuscular Hemoglobin 27.3 pg (28.0-32.0) Mean Corpuscular Hemoglobin Concent 33.2 g/dL (32.0-36.0) Red Cell Distribution Width 16.2 % (11.8-14.3) Platelet Count 341 10^3/uL (140-450) Mean Platelet Volume 8.1 fL (6.9-10.8) Neutrophils (%) (Auto) 64.1 % (37.0-80.0) Lymphocytes (%) (Auto) 21.3 % (10.0-50.0) Monocytes (%) (Auto) 8.6 % (0.0-12.0) Eosinophils (%) (Auto) 5.3 % (0.0-7.0) Basophils (%) (Auto) 0.7 % (0.0-2.0) Neutrophils # (Auto) 7.5 10 ^3/uL (1.6-8.6) Lymphocytes # (Auto) 2.5 10 ^3/uL (0.4-5.4) Monocytes # (Auto) 1.0 10 ^3/uL (0-1.3) Eosinophils # (Auto) 0.6 10 ^3/uL (0-0.8) Basophils # (Auto) 0.1 10 ^3/uL (0-0.2) Nucleated Red Blood Cells 0.0 % Sodium Level 138 mmol/L (136-145) Potassium Level 3.6 mmol/L (3.5-5.1) Chloride Level 101 mmol/L (98-107) Carbon Dioxide Level 28 mmol/L (20-31) Anion Gap 9 (5-15) Blood Urea Nitrogen 8 mg/dL (9-23) Creatinine 0.47 mg/dL (0.550-1.02) Glomerular Filtration Rate Calc 116 mL/min (>90) BUN/Creatinine Ratio 17.0 (10.0-20.0) Serum Glucose 113 mg/dL (74-106) Calcium Level 9.3 mg/dL (8.7-10.4) Total Bilirubin 0.7 mg/dL (0.2-1.0) Aspartate Amino Transferase (AST) 27 U/L (13-40) Alanine Aminotransferase (ALT) 11 U/L (7-40) Alkaline Phosphatase 93 U/L (46-116) Total Protein 7.1 g/dL (5.7-8.2) Albumin 4.3 g/dL (3.2-4.8) Lipase 36 U/L (12-53) Urine Color Light-yellow (Yellow) Urine Clarity Clear (Clear) Urine pH 7.0 (5.0-9.0) Urine Specific [place] 1.019 (1.001-1.035) Urine Protein Negative (Negative) Urine Ketones Negative (Negative) Urine Blood Negative /uL (Negative) Urine Nitrite Negative (Negative) Urine Bilirubin Negative (Negative) Urine Urobilinogen Normal mg/dL (Negative) Urine Leukocyte Esterase Negative /uL (Negative) Urine RBC 2 /hpf (0 - 4) Urine Microscopic WBC < 1 /HPF (0-5) Urine Squamous Epithelial Cells Few /hpf (<5) Urine Bacteria Few /hpf (None Seen) Urine Glucose Normal mg/dL (Normal) Other Laboratory Tests 09/20/24 03:27 Brief Hx & Hospital Course: This is a 48 years old female with past medical history hypertension, hyperlipidemia came to [facility] with chief complaint of severe abdominal pain. Patient had a right lower quadrant pain for six day radiating to the back. The patient was admitted. CT scan abdomen pelvis showed postsurgical change in the anterior pelvic wall with possible postoperative fluid collection. The patient was started on IV antibiotic with Rocephin. The patient was recently had a hysterectomy in [facility]. Today the patient doing well. Abdominal pain improved. No fever or chills. I am going to discharge her home. Advised her to follow up with primary care physician 1-2 weeks. Follow up with her surgeon per schedule. Activity as tolerated. Diet per home diet. Physical exam: HEENT: Normocephalic atraumatic pupils equal react to light and accommodation. Extraocular muscles intact, conjunctiva pink, oropharynx moist, no thrush, no exudate. Lymphatic: No lymphadenopathy Cardiovascular exam: S1, S2 was heard. No murmurs, rubs, gallops Lung: Clear on auscultation bilaterally, no wheeze, rale, rhonchi. GI: Abdominal soft, nondistended, nontenderness, positive bowel sounds. Extremity: No crepitus, cyanosis, edema. Pedal pulses present bilateral. Full range of motion. Skin: Normal turgor, no rash. Psych: Alert, oriented x3. Neurology: No focal deficits, cranial nerve II to XII grossly intact. This medical document was created using an electronic medical record system with [employer] direct computerized dictation system. Although this document has been carefully reviewed, there may still be some phonetic and typographical errors. These areas are purely typographical due to imperfections of the software programs, and do not reflect any compromise in the patient's medical care. Condition at Discharge: Stable Final Diagnosis/Problems List Intractable abdominal pain Leukocytosis, unspecified Abdominal pain History of recent hysterectomy in August in [place] Rapid weight loss after surgery Discharge Disposition: Home Discharge Instruct/Medications Scheduled Levofloxacin Hemihydrate (Levaquin 500 Mg), 1 TAB PO DAILY Progesterone Micronized (Progesterone), 10 MG PO DAILY Scheduled PRN Hydrocodone-Acetaminophen (Hydrocodone Bitartrate/AC 5-325 mg), 1 TAB PO Q4HP PRN Miscellaneous Medications Lisinopril (Lisinopril), 5 MG PO, (Reported) Discharge Statement: "Patient was advised to return to the ER or call 911 if any headaches, dizziness, shortness of breath, chest pain, abdominal pain, bleeding, fevers, or worsening of medical condition. Patient was counseled about treatment plan, medications, possible side effects, patientverbalized understanding. All questions were answered to the best of my ability. This discharge took greater then 30 minutes in planning, reviewing documentation, counseling the patient, and discussing with other team members." ASSESSMENT ASSESSMENT Assessment Date of Service: Sep 21, 2024 Billing Provider: DARNELL SEPULVEDA MD Common Visit Codes: 22011-XZX/OBS DISCH DAY >30min DARNELL SEPULVEDA MD Sep 21, 2024 12:35
[2024-09-21] MEDS ORDERED: LEVO500T91 PO (12:40)
[2024-09-21] MEDS ORDERED: HYDR-4902 PO (12:40)
[2024-09-21 14:20] VITALS: TEMP 36.4
--- NOTE | 2024-09-25 15:21 | ECG ---
[facility] Test Date: 2024-09-19 Test Time: 21:55:33 Pat Name: MARISOL CROWLEY Department: Respiratoy Room: 0245 A Gender: F Software Engineering Specialist: FCO : 1975 Requested By: SHONDA KNOX Order Number: [id number] Reading MD: Noel Huerta Measurements Intervals [place] Rate: 73 P: 46 [place]: 159 QRS: 17 QRSD: 95 T: 47 QT: 422 QTc: 465 Interpretive Statements Sinus rhythm Low voltage, precordial leads Electronically Signed On 09-25-2024 19:40:27 PDT by Noel Huerta Please click the below link to view image of tracing.
== END 2024-09-21 15:10 | disposition home or self-care (01) ==
LOC: ER 10:41 → OVERFLOW 18:30 → EAST 09-20 17:20
PROVIDERS: ADMIT Internal Medicine; ATTEND Internal Medicine
DX: R18.8 Other ascites (principal); R65.10 Systemic inflammatory response syndrome (SIRS) of non-infectious origin without acute organ dysfunction; E78.5 Hyperlipidemia, unspecified; I10 Essential (primary) hypertension; R63.4 Abnormal weight loss; Z68.38 Body mass index [BMI] 38.0-38.9, adult; Z90.710 Acquired absence of both cervix and uterus; Z90.49 Acquired absence of other specified parts of digestive tract; Z88.7 Allergy status to serum and vaccine
CPT/HCPCS: 36415; 72193; 74176; 80053; 81001; 83690; 85025; 96365; 96375; G0378; J2470

== ENCOUNTER → 2024-11-17 | Emergency (ER) | payer MEDICAID ==
[~2024-11-17] VITALS: Ht 165.1 cm; Wt 103.6 kg
[~2024-11-17] MED LIST changes: +HYDR-4902 PO; +LEVO500T91 PO; +LISI-275 PO; +NAPR-957 PO
[2024-11-17 17:02] VITALS: BP 152/79; PULSE 77; RESP 16; TEMP 98.1; O2SAT 96
== END | disposition left against medical advice (07) ==
LOC: ER 17:04
DX: L03.119 Cellulitis of unspecified part of limb (principal); Z53.21 Procedure and treatment not carried out due to patient leaving prior to being seen by health care provider

== ENCOUNTER 2024-11-18 09:14 | Emergency (ER) | payer MEDICAID ==
[~2024-11-18] VITALS: Ht 165.1 cm; Wt 102.8 kg
[~2024-11-18 09:14] MED LIST changes: -NAPR-957 PO
[2024-11-18 09:50] VITALS: BP 138/82; PULSE 62; RESP 16; TEMP 97.3; O2SAT 97
--- NOTE | 2024-11-18 10:07 | ED.PDOC ---
Musculoskeletal HPI Comments 49 y.o female presents to the ED for a chief complaint of left ankle pain that started 2 weeks ago that is now radiating up her left leg and is associated with swelling to her foot. Patient was advised by her PCP to come into the ED to r/o DVT given symptoms. Patient denies any recent trauma, twisting, injury, or surgeries to pain site. Patient also denies history of gout, however reports a similar flare up a couple years ago in which she had X rays done and was confirmed she had a swollen nerve. Chief Complaint: Lower Extremity Time Seen by MD: 09:54 Primary Care Provider: JIMENEZ Reviewed Notes: Nurses Notes, Medications, Allergies Allergies: Coded Allergies: Tetanus Toxoids (Verified Allergy, Unknown, 01/02/24) Home Meds Active Scripts Naproxen (Naproxen) 375 Mg Tab, 375 MG PO TID for 10 Days, #30 TAB Prov:BRIAN JACOBS MD 11/18/24 Levofloxacin Hemihydrate (LEVAQUIN 500 MG) 500 Mg Tab, 1 TAB PO DAILY, #7 TAB Prov:DARNELL SEPULVEDA MD 09/21/24 Hydrocodone-Acetaminophen (Hydrocodone Bitartrate/AC 5-325 mg) 1 Tab Tab, 1 TAB PO Q4HP PRN, #30 TAB Prov:DARNELL SEPULVEDA MD 09/21/24 Progesterone Micronized (PROGESTERONE) 100 Mg Cap, 10 MG PO DAILY for 10 Days, #10 CAP Prov:ERASMO SPEAR MD 01/02/24 Reported Medications Lisinopril (Lisinopril) 5 Mg Tab, 5 MG PO, TAB 09/19/24 Information Source: Patient Mode of Arrival: Ambulatory Location: Left Extremity Location: Ankle, Foot Timing: Weeks (2) Severity: Moderate Able to Move Extremity: Yes Bear Weight: Limited Pain: Moderate Mechanism: None Circumstances: Spontaneous Onset of Symptoms: Spontaneous Symptoms: Swelling, Pain DVT Risk Factors: NONE Associated signs and symptoms: Swelling, Ankle pain, Leg pain Past Medical History PAST MEDICAL HISTORY: High Lipids, HTN Surgical History: Cholecystectomy, , Hysterectomy [employer]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 Hx Family History Family History: Reviewed,noncontributory to illness, Family hx of HTN Social History Smoker: Non-Smoker Alcohol: Occasionally Drugs: Denies Drug Use Lives In: Home Constitutional: denies: chills, diaphoresis, fatigue, fever, malaise, sweats, weakness, others EENTM: denies: blurred vision, double vision, ear bleeding, ear discharge, ear drainage, ear pain, ear ringing, eye pain, eye redness, hearing loss, mouth pain, mouth swelling, nasal discharge, nose bleeding, nose congestion, nose pain, photophobia, tearing, throat pain, throat swelling, voice changes, others Respiratory: denies: cough, hemoptysis, orthopnea, SOB at rest, shortness of breath, SOB with excertion, stridor, wheezing, others Cardiovascular: denies: chest pain, dizzy spells, diaphoresis, Dyspnea on exertion, edema, irregular heart beat, left arm pain, lightheadedness, palpitations, PND, syncope, others Gastrointestinal: denies: abdomen distended, abdominal pain, blood streaked bowels, constipated, diarrhea, dysphagia, difficulty swallowing, hematemesis, melena, nausea, poor appetite, poor fluid intake, rectal bleeding, rectal pain, vomiting, others Genitourinary: denies: abnormal vagina bleeding, burning, dyspareunia, dysuria, flank pain, frequency, hematuria, incontinence, pain, , vagina discharg e, urgency, others Neurological: denies: dizziness, fainting, headache, left sided numbness, left sided weakness, numbness, paresthesia, pre-existing deficit, right sided numbness, right sided weakness, seizure, speech problems, tingling, tremors, weakness, others Musculoskeletal: reports: others (left ankle pain with swelling ); denies: back pain, gout, joint pain, joint swelling, muscle pain, muscle stiffness, neck pain Integumetry: denies: bruises, change in color, change in hair/nails, dryness, laceration, lesions, lumps, rash, wounds, others Allergic/Immunocompromised: denies: Difficulty Healing, Frequent Infections, Hives, Itching, others Hematologic/Lymphatic: denies: anemia, blood clots, easy bleeding, easy bruising, swollen glands, others Endocrine: denies: excessive hunger, excessive sweating, excessive thirst, excessive urination, flushing, intolerance to cold, intolerance to heat, unexplained weight gain, unexplained weight loss, others Psychiatric: denies: anxiety, bipolar disorder, depression, hopeless, panic disorder, schizophrenia, sleepless, suicidal, others All Other Systems: Reviewed and Negative Physical Exam General Appearance: No Apparent Distress, Normal HEENT: Normal ENT Inspection, Pharynx Normal, TMs Normal Neck: Full Range of Motion, Non-Tender, Normal, Normal Inspection Respiratory: Chest Non-Tender, Lungs Clear, No Accessory Muscle Use, No Respiratory Distress, Normal Breath Sounds Cardiovascular: No Edema, No JVD, No Murmur, No Gallop, Normal Peripheral Pulses, Regular Rate/Rhythm Breast Exam: Deferred Gastrointestinal: No Organomegaly, Non Tender, No Pulsatile Mass, Normal Bowel Sounds, Soft Genitalia: Deferred Pelvic: Deferred Rectal: Deferred Extremities: No calf tenderness, Normal capillary refill, Normal inspection, Normal range of motion, Non-tender, No pedal edema, Swelling, Tender Musculoskeletal : Location: Left Extremity Location: Ankle, Leg Apperance: Swelling, Limited ROM, Tenderness: Mild Neurologic: Alert, fisher trammel net II-XII nml as Tested, No Motor Deficits, Normal Affect, Normal Mood, No Sensory Deficits Cerebellar Function: Normal Reflexes: Normal Skin: Dry, Normal Color, Warm Peripheral Pulses: 1+ carotid (R), 1+ carotid (L) Lymphatic: No Adenopathy Was a procedure done? Was a procedure done?: No Differential Diagnosis EXT Differential Diagnosis: Deep Vein Thrombosis, Sprain, Dislocation, Gout X-Ray, Labs, Meds, VS Vital Signs Date Time Temp Pulse Resp B/P (MAP) Pulse Ox O2 Delivery O2 Flow Rate FiO2 11/18/24 09:50 97.3 62 16 138/82 (100) 97 97.3 11/18/24 09:16 97.9 66 18 146/83 98 97.9 X-Ray, Labs, Meds, VS Comment Emergency department eventful patient came in because of swelling of the ankle and also pain to the leg her doctor send her for possible DVT The x-ray of the ankle is normal she will need an Junito wrap Ultrasound for DVT negative Patient will be discharged home with some anti-inflammatory Time of 1ST Reevaluation: 10:03 Reevaluation 1ST: Unchanged Time of 2ND Reevaluation: 11:24 Reevaluation 2ND: Improved Consultation: PCP Patient Education/Counseling: Diagnosis, Treatment, Prognosis, Need For Follow Up Family Education/Counseling: Diagnosis, Treatment, Prognosis, Need For Follow Up, No Family Present Departure 1 Departure Time of Disposition: 11:35 Impression: Primary Impression: Left ankle swelling Ruled Out: DVT (deep venous thrombosis) Disposition: HOME / SELF CARE / HOMELESS Condition: Fair Additional Instructions: Local heat and keep the Junito wrap until you feel better e-Prescriptions Naproxen (Naproxen) 375 Mg Tab 375 MG PO TID for 10 Days, #30 TAB Prov: BRIAN JACOBS MD 11/18/24 Discharged With: Self Critical Care Note Critical Care Time?: No Stability Stability form required: No I personally scribed for BRIAN JACOBS MD ([email or web address]) on 11/18/24 at 10:07. Electronically submitted by Keiko Marin ([facility]). BRIAN JACOBS MD Nov 18, 2024 10:07
--- NOTE | 2024-11-18 10:55 | DVH ---
XY L ANKLE 3 VIEW, INDICATION: ANKLE SWOLLEN TECHNICAL DATA:Frontal , oblique and lateral views were obtained of the left ankle. COMPARISON: None FINDINGS: No fracture is identified. Joint spaces are maintained. Alignment is anatomic. Soft tissues are swo llen. IMPRESSION: No acute fracture or dislocation of the left ankle.
--- NOTE | 2024-11-18 11:03 | DVH ---
Ultrasound Lower Extremity Veins Indication: SWOLLEN LEG Comparison: None Technique: Multiplanar grayscale and color sonographic images of the left lower extremity veins are p rovided. Doppler interrogation, and spectral waveform analysis performed. Findings: There is normal color flow with compressibility. There is normal phasicity with respiration and augme ntation on the dynamic maneuvers. Impression: 1. No evidence of occlusive deep venous thrombosis within the left lower extremity.
[2024-11-18] MEDS ORDERED: NAPR-957 PO (11:27)
== END 2024-11-18 12:41 | disposition home or self-care (01) ==
LOC: ER 09:14
DX: M25.472 Effusion, left ankle (principal); E78.5 Hyperlipidemia, unspecified; I10 Essential (primary) hypertension; Z90.710 Acquired absence of both cervix and uterus; Z90.49 Acquired absence of other specified parts of digestive tract; Z88.7 Allergy status to serum and vaccine
CPT/HCPCS: 73610; 93971